=== PATIENT | male | born 1975 | race African-American/Black ===

== ENCOUNTER 2019-02-12 16:54 | Emergency (ER) | payer OTHER ==
[2019-02-12 17:13] VITALS: BP 115/76
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
[2019-02-12] MEDS ORDERED: fentaNYL CITRATE/PF 100 MCG/2 ML INJ. IV ONE (17:32)
[2019-02-12 17:38] LABS: MEAN CORPUSCULAR HEMOGLOBIN 31.2 pg (28.0-34.0); MONOCYTES % 9.2 % (0.0-11.0)
[2019-02-12 17:39] LABS: BASOPHILS % 0.3 % (0.0-1.5); EOSINOPHILS % 8.5 % (0.0-6.8); NEUTROPHILS # 3.1 # k/uL (1.4-7.7)
[2019-02-12 17:52] LABS: eGFR (Non-African) > 60
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
[2019-02-12] MEDS ORDERED: TAMSULOSIN HCL 0.4 MG CAP.ER.24H PO ONE ×2 (18:39→18:42)
[2019-02-12 21:22] LABS: APPEARANCE,URINE CLEAR (CLEAR); COLOR,URINE YELLOW (YELLOW); OCCULT BLOOD,URINE NEGATIVE (NEGATIVE)
[2019-02-12 21:23] LABS: PH URINE 5.5 (5.0 - 8.0); UROBILINOGEN URINE 0.2 Eu (0.2-1.0)
== END 2019-02-12 19:00 | disposition home or self-care (01) ==
LOC: EDSEX 16:54 → ED 16:54
DX: N20.1 Calculus of ureter (principal); F15.11 Other stimulant abuse, in remission
CPT/HCPCS: 36415; 74176; 80053; 81002; 85025; 96374; 99283; 99284; J3010